=== PATIENT | female | born 1990 | race Caucasian/White ===

== ENCOUNTER 2021-03-05 00:47 | Emergency (ER) | payer BC, SELFPAY ==
[2021-03-05 01:05] VITALS: BP 146/101; PULSE 63; RESP 16; TEMP 36.9; O2SAT 97; BMI 40.3
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
[2021-03-05] MEDS: HYDROcodone-acetaminophen 5-325 mg Tablet 2 TAB PO (02:54)
[2021-03-05 02:57] VITALS: BP 128/88; PULSE 70; RESP 16; O2SAT 99
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
--- NOTE | 2021-03-09 08:10 | DCPLANNER ---
Patient has a follow up appointment scheduled for Wednesday, March 10, 2021 at 11:[address] Carroll at [facility]. Clinic will call patient with appointment information.
--- NOTE | 2021-03-26 08:45 | DCPLANNER ---
Patient did attend appointment scheduled with [facility].
== END 2021-03-05 02:58 | disposition home or self-care (01) ==
PROVIDERS: Emergency Provider Physician Assistant
DX: S06.9X9A Unspecified intracranial injury with loss of consciousness of unspecified duration, initial encounter (principal); S02.401A Maxillary fracture, unspecified side, initial encounter for closed fracture; S02.2XXA Fracture of nasal bones, initial encounter for closed fracture; Y04.2XXA Assault by strike against or bumped into by another person, initial encounter
CPT/HCPCS: 70450; 70486; 72125; 99283

== ENCOUNTER → 2021-10-07 15:42 | Outpatient (BNVA) | payer BC, SELFPAY | PROVIDERS: Visit Provider Nurse Practitioner Family | DX: R06.02 Shortness of breath (principal); R07.9 Chest pain, unspecified; M94.0 Chondrocostal junction syndrome [Tietze]; R53.83 Other fatigue; J45.909 Unspecified asthma, uncomplicated; G47.00 Insomnia, unspecified; F32.9 Major depressive disorder, single episode, unspecified; F41.9 Anxiety disorder, unspecified; Z68.39 Body mass index [BMI] 39.0-39.9, adult; F17.210 Nicotine dependence, cigarettes, uncomplicated | CPT/HCPCS: 71046; 80053; 80061; 82306; 82607; 84443; 85651; 86141 ==

== ENCOUNTER 2021-11-12 17:39 | Emergency (ER) | payer BC, SELFPAY ==
[2021-11-12] VITALS (7 sets, daily range): BP systolic 141–167; BP diastolic 72–102; PULSE 86–103; RESP 18–24; O2SAT 94–100; BMI 40.3
--- NOTE | 2021-11-12 17:44 | XRR_ITS ---
PROCEDURE INFORMATION: Exam: XR Chest Exam date and time: 11/12/2021 6:06 PM Age: 31 years old Clinical indication: Dyspnea and wheezing TECHNIQUE: Imaging protocol: XR of the chest. Views: 2 views. COMPARISON: CR XR chest 2V* [id number] 10/07/2021 3:48 PM FINDINGS: Lungs: There is no evidence of focal pulmonary consolidation. Pleural spaces: No pleural effusion or pneumothorax. Heart/Mediastinum: Normal in size. Bones/joints: No acute fracture is identified. XR/XR chest 2V* [id number] IMPRESSION: No acute findings.
--- NOTE | 2021-11-12 17:45 | ECG_ITS ---
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 Measurements Intervals [place] Rate: 81 P: 52 MO: 153 QRS: 55 QRSD: 101 T: 51 QT: 403 QTc: 469 Interpretive Statements SINUS RHYTHM INCOMPLETE RIGHT BUNDLE BRANCH BLOCK [90+ ms QRS DURATION, TERMINAL R IN V1/V2, 40+ ms S IN I/aVL/V4/V5/V6] No previous ECG available for comparison Electronically Signed On 11-12-2021 21:53:42 CDT by Jay Calzada M.D. [email or web address]
--- NOTE | 2021-11-12 17:59 | W.ED.GENADLT ---
HPI - General Adult General: Chief complaint: Shortness of Breath/Dyspnea Stated complaint: SOB Time Seen by Provider: 11/12/21 17:44 History of Present Illness: Patient is a 31-year-old Fe with history of asthma presenting to the emergency room 1 week of cough and 1 day of dyspnea. Patient tells me that that issue has been wheezing earlier today and went to see her primary care provider at which point she was receiving breathing treatment steroid without any significant improvement in symptoms. Patient was then told to come to the emergency room. Arrival, patient has bilateral wheezing. Patient denies any productive cough, nausea/vomiting, diarrhea, melena medic easier. Denies any chest pain, pleuritic chest pain, leg swelling, recent travel recent immobilization, or OCP use. No prior history of VTE's. Patient denies any history of aortic aneurysm in the family. No family history of cardiac issues. Report dyspnea is not exertional. Onset: 1 day of dyspnea, 1 week of cough Duration: ongoing Location:home Severity:moderate Associated symptoms: Reports dyspnea; Deny chest pain, nausea, rash, palpitations or vomiting Review of Systems Const: Denies: fever(s) or chills Eyes: Denies: change in vision ENMT: Denies: mouth pain Card: Denies: chest pain or palpitations Resp: Reports: dyspnea and wheezing; Denies: non-productive cough GI: Denies: abdominal pain, nausea, vomiting or diarrhea : Denies: dysuria Musc: Denies: extremity pain Skin/Breast: Denies: rash or new lesions Neuro: Denies: weakness in extremities Psych: Reports: other (Normal mood) Myo/Lymph: Denies: easy bruising [facility] ED PFSH: Medical History (Updated 11/12/21 @ 18:00 by Lenin Unger MD) Asthma Social History (Updated 11/12/21 @ 18:00 by Lenin Unger MD) Smoking and tobacco status: never smoked Second hand smoke exposure: Yes Alcohol intake: never Substance/Drug Use: never Female Reproductive History: Date of last menstrual period: 03/01/21 Physical Exam Const: COMMON NORMALS: alert HENMT: COMMON NORMALS: atraumatic HEAD & SCALP: atraumatic MOUTH: moist mucous membranes not abnormal Eye: COMMON NORMALS: EOMs intact bilaterally and conjunctivae normal CONJUNCTIVA: Yes conjunctivae normal Neck/C-Spine: COMMON NORMALS: full ROM and supple Resp: COMMON NORMALS: normal respiratory effort OTHER: + Wheezing bilaterally, mild intercostal retraction Cardio: COMMON NORMALS: regular rate RATE: regular rate OTHER: 2+ radial pulses b/l GI: COMMON NORMALS: Soft to palpation and non-tender PALPATION: Yes Soft to palpation Extremity: COMMON NORMALS: full ROM Neuro: SENSORIUM/ORIENTATION: Yes alert MOTOR EXAM: No Abnormal motor strength present and Other motor observations present (no focal motor deficits) Psych: COMMON NORMALS: speech normal SPEECH: Yes normal speech MOOD & AFFECT: Yes euthymic mood Course Vital Signs: Vital signs: Vital Signs Pulse Rate 91 11/12/21 18:19 Respiratory Rate 22 H 11/12/21 18:19 Blood Pressure 163/91 11/12/21 17:40 Pulse Oximetry 100 11/12/21 18:19 MDM - General Adult Medical Decision Making 31-year-old female with history of asthma/COPD presents the emergency room with wheezing bilaterally. On arrival, patient is afebrile with normal O2 sats. Patient is noted to have bilateral expiratory wheezing. Patient received DuoNeb and terbutaline in the emergency room with significant improvement in symptoms. She continues to be satting well on room air. At 6:30 PM, patient ports feeling agitated and thinks that there is something in his throat. I discuss case with Dr. Carroll at 6:44pm. Dr. Carroll evaluate patient at bedside and does not recommend scoping the patient as he does not think this is upper airway obstruction patient does not have any drooling, slurring of speech, hoarseness of voice, tongue swelling or uvula swelling. Patient continues to be satting well, now tolerating p.o. without any difficulty. Patient has no stridor or any signs of upper airway obstruction. Patient elects to go home at this time. Doubt ACS/PE or other emergent causes of dyspnea. No suspicion for aortic dissection given no widened mediastinum, 2+ upper extremity pulses, or tearing pain. No suspicion for PE given no pleuritic chest pain, recent immobilization or surgery hemoptysis, or other VTE risk factors. EKG is non-ischemic. XR normal. Rx: albuterol PRN wheezing Disposition: Discharge. Patient counseled regarding diagnostic impression, treatment plan. Patient given ED strict return precautions to return for continuation, worsening, or development of new symptoms. Instructed to f/u w/ PCP regarding symptoms today. Patient verbalized understanding. Lab Data : 11/12/21 18:46 11/12/21 18:46 Radiology Impressions Chest X-Ray 11/12/21 17:44 IMPRESSION: No acute findings. Laboratory Results WBC 10.0 10^3/uL (4.0-10.0) 11/12/21 18:46 RBC 4.98 10^6/uL (4.1-5.3) 11/12/21 18:46 Hgb 14.9 g/dL (11.5-15.3) 11/12/21 18:46 Hct 44.4 % (37.0-47.0) 11/12/21 18:46 MCV 89.2 fl (81-99) 11/12/21 18:46 MCH 29.9 pg (28.0-34.0) 11/12/21 18:46 MCHC 33.6 g/dL (30.0-36.0) 11/12/21 18:46 RDW 12.2 % (12.1-15.1) 11/12/21 18:46 Plt Count 303 10^3/cmm (130-400) 11/12/21 18:46 MPV 9.5 fL (7.4-10.4) 11/12/21 18:46 Neut % (Auto) 82.9 % 11/12/21 18:46 Lymph % (Auto) 11.3 % 11/12/21 18:46 Reeves % (Auto) 2.3 % 11/12/21 18:46 Eos % (Auto) 2.7 % 11/12/21 18:46 Baso % (Auto) 0.5 % 11/12/21 18:46 Neut # (Auto) 8.33 10^3/uL (1.8-7.7) H 11/12/21 18:46 Lymph # (Auto) 1.1 10^3/uL (0.8-4.8) 11/12/21 18:46 Reeves # (Auto) 0.2 10^3/uL (0.2-0.9) 11/12/21 18:46 Eos # (Auto) 0.3 10^3/uL (0.0-0.8) 11/12/21 18:46 Baso # (Auto) 0.1 10^3/uL (0.0-0.1) 11/12/21 18:46 Nucleated RBC % (auto) 0 % 11/12/21 18:46 Nucleated RBCs # 0.0 /100WBC 11/12/21 18:46 Imaging Data Other Imaging: Radiologist's impression: [address] [address] XRay Report Signed Patient: Mitzi Ang Unit #: [id number] : 1990 Age/Sex: 31 / F ADM Date: 11/12/21 Loc: ER Room/Bed: Attending Dr: Ordering Provider/Ordering MD: Lenin Unger MD Date of Service: 11/12/21 Procedure(s): XR chest 2V* [id number] Accession Number(s): [id number] Report Number: [id number] PROCEDURE INFORMATION: Exam: XR Chest Exam date and time: 11/12/2021 6:06 PM Age: 31 years old Clinical indication: Dyspnea and wheezing TECHNIQUE: Imaging protocol: XR of the chest. Views: 2 views. COMPARISON: CR XR chest 2V* [id number] 10/07/2021 3:48 PM FINDINGS: Lungs: There is no evidence of focal pulmonary consolidation. Pleural spaces: No pleural effusion or pneumothorax. Heart/Mediastinum: Normal in size. Bones/joints: No acute fracture is identified. XR/XR chest 2V* [id number] IMPRESSION: No acute findings. ? Dictated By: Yousuf Maguire MD Signed By: Yousuf Maguire MD Signed Date/Time: 11/12/21 190 DD/ 05 Discharge Plan Discharge Patient Disposition: Home Clinical Impression: Wheezing, Acute asthma exacerbation, Dyspnea Condition: Stable Prescriptions: New albuterol sulfate 90 mcg/actuation HFA aerosol inhaler 2 inh inhalation Q4H PRN (Reason: shortness of breath or wheezing) 5 Days Qty: 6.7 0RF No Action trazodone 50 mg tablet 100 mg PO .QHS 30 Days Qty: 60 2RF diclofenac sodium 75 mg tablet,delayed release (DR/EC) 75 mg PO BID 30 Days Qty: 60 2RF albuterol sulfate [ProAir HFA] 90 mcg/actuation HFA aerosol inhaler 2 puff inhalation QID PRN (Reason: shortness of breath or wheezing) Qty: 8.5 6RF Trelegy Ellipta 100-62.5-25 mcg blister with device 1 inh inhalation DAILY Qty: 60 5RF diphenhydramine-acetaminophen [Tylenol PM Extra Strength] 25-500 mg tablet 2 tab PO .Qhs PRN (Reason: pain) Qty: 60 6RF Ubrelvy 100 mg tablet 100 mg PO DAILY 30 Days Qty: 30 11RF diclofenac sodium [Voltaren Arthritis Pain] 1 % gel 4 g topical QID Qty: 100 11RF methylprednisolone acetate 40 mg/mL suspension 40 mg IM ONCE Qty: 1 0RF dexamethasone sodium phosphate 4 mg/mL solution 4 mg IM ONCE Qty: 1 0RF albuterol sulfate 2.5 mg /3 mL (0.083 %) solution for nebulization 2.5 mg inhalation QID PRN (Reason: shortness of breath or wheezing) Qty: 180 8RF (DME) nebulizers Misc See Rx Instructions .Route Qty: 1 0RF Rx Instructions: As directed promethazine-DM 6.25-15 mg/5 mL syrup 5 - 10 ml PO Q6H Qty: 200 1RF cholecalciferol (vitamin D3) 50 mcg (2,000 unit) capsule 50 mcg PO DAILY 90 Days Qty: 90 1RF Discharge Orders: Discharge ED (Routine); Ordered 11/12/21 Ordered By: Lenin Unger Referrals: Clarice Haas NP [Primary Care Provider] - Discharge Diet: Advance as tolerated Discharge Activity: Increase activity as tolerated Patient Instructions: Wheezing (ED) Activity Restrictions/Additional Instructions: Come back to the emergency room if your symptoms worsen, have any shortness of breath, fever/chills, dehydration, inability tolerate food or drinks, any difficulty breathing, or any new or concerning complaints. Stand Alone Forms: Work/School Release Coding Level of Care Code ED Steam Station Supervisor for Maddyg Fwd Exam Comprehensive
[2021-11-12] MEDS: ipratropium-albuterol 3 mL Neb INHALATION ×3 (18:14→18:22)
[2021-11-12 19:08] LABS: Basophils # 0.1 10^3/uL (0.0-0.1); Basophils % 0.5 %; Eosinophils # 0.3 10^3/uL (0.0-0.8); Eosinophils % 2.7 %; Hematocrit 44.4 % (37.0-47.0); Hemoglobin 14.9 g/dL (11.5-15.3); Lymphocytes # 1.1 10^3/uL (0.8-4.8); Lymphocytes % 11.3 %; Mean Corpuscular HGB Conc 33.6 g/dL (30.0-36.0); Mean Corpuscular Hemoglobin 29.9 pg (28.0-34.0); Mean Corpuscular Volume 89.2 fl (81-99); Mean Platelet Volume 9.5 fL (7.4-10.4); Monocytes # 0.2 10^3/uL (0.2-0.9); Monocytes % 2.3 %; Neutrophils # 8.33 10^3/uL (1.8-7.7); Neutrophils % 82.9 %; Nucleated Red Blood Cells % 0 %; Platelet Count 303 10^3/cmm (130-400); Red Blood Count 4.98 10^6/uL (4.1-5.3); Red Cell Distribution Width 12.2 % (12.1-15.1)
[2021-11-12] MEDS: LORazepam 2 mg/mL INJ 1 mL IVP (19:17)
[2021-11-12] MEDS: terbutaline 1 mg/mL INJ 0.25 MG SUBCUT (19:20)
[2021-11-12 20:37] LABS: Anion Gap 17.5 (5-19); Blood Urea Nitrogen 10 mg/dL (6-20); Calcium 9.1 mg/dL (8.5-10.5); Carbon Dioxide 20 mmol/L (22-29); Chloride 106 mmol/L (98-107); Glucose 134 mg/dL (65-115); Osmolality Calculated 291 mOsm/kg (285-295); Potassium 3.5 mmol/L (3.5-5.1); Sodium 140 mmol/L (136-145)
== END 2021-11-12 20:42 | disposition home or self-care (01) ==
PROVIDERS: Emergency Provider Emergency Medicine; PCP Nurse Practitioner Family
DX: J45.901 Unspecified asthma with (acute) exacerbation (principal); Z77.22 Contact with and (suspected) exposure to environmental tobacco smoke (acute) (chronic)
CPT/HCPCS: 71046; 80048; 85025; 93005; 94640; 96372; 96374; 99284; J2060; J3105

== ENCOUNTER → 2021-12-28 10:26 | Outpatient (BNVA) | payer BC, SELFPAY | PROVIDERS: PCP Nurse Practitioner Family; Visit Provider Internal Medicine Pulmonary Disease | DX: J45.909 Unspecified asthma, uncomplicated (principal); R06.02 Shortness of breath; F17.210 Nicotine dependence, cigarettes, uncomplicated | CPT/HCPCS: 36415; 82103; 82785; 86003 ==

== ENCOUNTER 2022-01-27 13:23 | Outpatient (CLI) | payer BC, SELFPAY ==
--- NOTE | 2022-01-27 13:46 | PFTS_ITS ---
Date of Study:01/27/22 Date of Dictation: 01/29/2022 MECHANICS: Postbronchodilator forced vital capacity (FVC) is normal. Postbronchodilator forced expiratory volume in one second (FEV1) is moderately reduced 61%. FEV1/FVC is reduced. There is no significant response to bronchodilators. FLOW VOLUME LOOP: Sloping of expiratory limb suggestive of airflow obstruction . LUNG VOLUMES: Total lung capacity (TLC) is normal. Residual volume (RV) is normal. DIFFUSING CAPACITY FOR CARBON MONOXIDE: Normal . INTERPRETATION: The spirometry consistent with moderate airflow obstruction. No significant response to bronchodilators. Flow volume loop consistent with airflow obstruction. Lung volumes are normal. Gas transfer is normal. Clinical correlation recommended. [facility]
== END 2022-01-27 13:24 | disposition home or self-care (01) ==
PROVIDERS: PCP Nurse Practitioner Family; Visit Provider Internal Medicine Pulmonary Disease
DX: J45.909 Unspecified asthma, uncomplicated (principal); R06.02 Shortness of breath
CPT/HCPCS: 94060; 94618; 94726; 94729; J7611

== ENCOUNTER 2022-04-20 06:00 | Outpatient (CLI) | payer BC, MEDICAID, SELFPAY | END 2022-04-20 06:01 | disposition home or self-care (01) | LOC: RAD 06-24 09:00 | PROVIDERS: PCP Nurse Practitioner Family; Visit Provider Nurse Practitioner Family | DX: R10.9 Unspecified abdominal pain (principal); R19.7 Diarrhea, unspecified; R14.0 Abdominal distension (gaseous); K59.00 Constipation, unspecified; R11.0 Nausea; K58.9 Irritable bowel syndrome, unspecified | CPT/HCPCS: 74018; 80053 ==

== ENCOUNTER 2022-07-01 08:25 | Day surgery (SDC) | payer BC, MEDICAID, SELFPAY ==
[2022-06-30 10:18] VITALS: BMI 40.3
[2022-07-01 08:42] VITALS: BP 139/91; PULSE 73; RESP 18; TEMP 36.2; O2SAT 100
[2022-07-01] MEDS: sodium chloride 0.9% 1,000 ML 30 ML IV (08:49)
[2022-07-01 08:50] LABS: OR HCG Qualitative Urine Negative (Negative)
--- NOTE | 2022-07-01 08:50 | P.HP_ITS ---
Same Day Surgery H&P Indication for Procedure/HPI DATE OF PROCEDURE: July 01, 2022 CHIEF COMPLAINT/INDICATIONFOR SURGICAL PROCEDURE: Belly pain PREOP DIAGNOSIS: Change in bowel habits PLANNED PROCEDURE: Operation Date: 07/01/22 09:15 Proposed Procedures p Colonoscopy 43381,R19.4(Not Applicable) - Donato Mensah MD 05/05/2022 This is a pleasant 32 years old female patient, referred to my practice with history of change in bowel habits diarrhea alternating with constipation associated with lower abdominal sharp and throbbing pain describes it as labor pain gets worse with stress and food and gets better with no obvious explanation.? Patient denies any bleeding per rectum and she does report that she has a sister of 22 years of age had history of colon cancer patient herself had a 2018 colonoscopy that showed polyps.? Patient denies history of vaginal discharge but she does report element of dyspareunia particularly with lower abdominal pain.? She did not have recent pelvic exam and she is due for a colonoscopy for surveillance purposes. Interim history 07/01/2022 Patient comes today for surveillance colonoscopy ROS All systems have been reviewed negative except as for the above or per problem list. Medications/Allergies* Home Medications Medication Instructions Recorded Confirmed Type diclofenac sodium 1 % topical gel 1 ea topical PRN PRN Pain 06/30/22 06/30/22 History diclofenac sodium 75 mg 75 mg PO BID 06/30/22 06/30/22 History tablet,delayed release trazodone 50 mg tablet 50 mg PO .QHS PRN Sleep 06/30/22 06/30/22 History Allergies/Adverse Reactions Allergy/AdvReac Type Severity Reaction Status Date / Time morphine Allergy ALGY-Rash Verified 07/01/22 08:51 Current Medications: Generic Name Dose Route Start Last Admin Trade Name Freq PRN Reason Stop Dose Admin Sodium Chloride 1,000 mls @ 30 mls/hr 07/01/22 08:30 07/01/22 08:49 Sodium Chloride 0.9% IV 07/02/22 08:29 30 mls/hr .Q24H SONYA Administration Pertinent History/Comorbid Conditions* Medical History (Updated 04/20/22 @ 11:05 by Clarice Haas NP) Asthma Social History Smoking and tobacco status: current every day smoker cigarettes Packs smoked p er day: 2 Years cigarettes smoked: 19 [ Other cigarette details: currently 1ppd ] Second hand smoke exposure: Yes Alcohol intake: never Pertinent Exam Findings alert, oriented x 3, regular rate & rhythm and procedure specific exam findings (Abdominal exam nontender nondistended soft) Recommendations Surgery/Procedure today (Colonoscopy with possible bx) Coding Level of Care Code Acute Structural Iron Erector for Linda Prieto
--- NOTE | 2022-07-01 09:00 | ANES.PREANE2 ---
Pre-Anesthetic Assessment Height/Weight: Height 1.63 m Weight 106.594 kg Temp Pulse Resp BP Pulse Ox O2 Del Method 97.1 F L 73 18 139/91 100 07/01/22 08:42 07/01/22 08:42 07/01/22 08:42 07/01/22 08:42 07/01/22 08:42 07/01/22 08:42 Preop Diagnosis: Change in bowel habits Operation Date: 07/01/22 09:15 Proposed Procedures p Colonoscopy 20983,R19.4(Not Applicable) - Donato Mensah MD Familial anesthetic complications: none Was Beta Grzegorz taken within 24 hours: N/A Was Clonidine taken within 24 hours: N/A Last intake: Intake Last Liquid Date 07/01/22 Last Liquid Time 00:15 Last Solid Date 06/29/22 Last Solid Time 22:30 Social Alcohol (occasional) and Tobacco 0.5 pack(s) per day Exam alert, oriented x 3, clear to auscultation bilaterally and regular rate & rhythm Airway Submandibular: within normal limits Cervical ROM: within normal limits Mallampati: Class II Dentition: chipped and full Pulmonary Asthma and Exertional Dyspnea CV/HEM palpitations None reported Hepatic None reported GI None reported Metabolic None reported Musc/skel Lower Back Pain Neuropsych Anxiety, Bipolar, Depression and Headache Anesthetic Plan ASA status: 3 Risk of > 500 ml blood loss (7ml/kg in children): No Medications/Allergies Home Medications Medication Instructions Recorded Confirmed Last Taken Type cholecalciferol (vitamin D3) 50 50 mcg PO DAILY 90 days #90 caps 04/20/22 06/30/22 Unknown Rx mcg (2,000 unit) capsule diphenhydramine 25 2 tab PO .Qhs PRN pain #60 tabs 04/20/22 06/30/22 Unknown Rx mg-acetaminophen 500 mg tablet (Tylenol PM Extra Strength) montelukast 10 mg tablet 10 mg PO DAILY 30 days #30 tabs 04/20/22 06/30/22 Unknown Rx (Singulair) ondansetron HCl 4 mg tablet 4 mg PO Q6H PRN nausea and 04/20/22 06/30/22 Unknown Rx vomiting #90 tabs diclofenac sodium 1 % topical gel 1 ea topical PRN PRN Pain 06/30/22 06/30/22 Unknown History diclofenac sodium 75 mg 75 mg PO BID 06/30/22 06/30/22 Unknown History tablet,delayed release trazodone 50 mg tablet 50 mg PO .QHS PRN Sleep 06/30/22 06/30/22 Unknown History Allergies Allergy/AdvReac Type Severity Reaction Status Date / Time morphine Allergy ALGY-Rash Verified 07/01/22 08:51 Current Medications Generic Name Dose Route Start Last Admin Trade Name Freq PRN Reason Stop Dose Admin Sodium Chloride 1,000 mls @ 30 mls/hr 07/01/22 08:30 07/01/22 08:49 Sodium Chloride 0.9% IV 07/02/22 08:29 30 mls/hr .Q24H SONYA Administration PFSH Anesthesia Medical History Asthma Social History Smoking and tobacco status: current every day smoker cigarettes Packs smoked per day: 2 Years cigarettes smoked: 19 [ Other cigarette details: currently 1ppd ] Second hand smoke exposure: Yes Alcohol intake: never Female Reproductive History Date of last menstrual period: 03/01/21 Data Anesthesia Cardiac Studies: No Data to Display
[2022-07-01 09:47] VITALS: BP 136/92; PULSE 73; RESP 16; TEMP 36.3; O2SAT 99
--- NOTE | 2022-07-01 09:51 | ANE.PACU2 ---
Inpatient post-anesthesia follow up: Airway intact: Yes Vital signs: Temperature 97.1 F Pulse Rate 73 Respiratory Rate 18 Blood Pressure 139/91 Pulse Oximetry 100 Oxygen Delivery Me thod Room Air Oxygen Flow Rate Fraction of Inspir ed Oxygen Hydration adequate: Yes Nausea and vomiting: No Pain level: 1 Mental status: Baseline
[2022-07-01 09:57] VITALS: BP 127/94; PULSE 70; RESP 18; O2SAT 100
== END 2022-07-01 10:30 | disposition home or self-care (01) ==
PROVIDERS: Anesthesiology; PCP Nurse Practitioner Family; Visit Provider Surgery
PROC: 0DJD8ZZ Inspection of Lower Intestinal Tract, Via Natural or Artificial Opening Endoscopic (ICD-10-PCS; CPT 45378; principal; 2022-07-01 09:15)
DX: Z12.11 Encounter for screening for malignant neoplasm of colon (principal); J45.909 Unspecified asthma, uncomplicated; F17.210 Nicotine dependence, cigarettes, uncomplicated; Z80.0 Family history of malignant neoplasm of digestive organs; Z86.010 Personal history of colon polyps
CPT/HCPCS: 45378; 81025; 82274; 83630; 84703; 87493; 87506; J2704; J7030

== ENCOUNTER 2022-08-11 11:05 | Emergency (ER) | payer BC, MEDICAID, SELFPAY ==
[2022-08-11 11:11] VITALS: BP 83/60; PULSE 71; RESP 18; TEMP 36.8; O2SAT 96; BMI 28.3
--- NOTE | 2022-08-11 11:25 | XRR_ITS ---
PROCEDURE INFORMATION: Exam: XR Chest Exam date and time: 08/11/2022 11:50 AM Age: 32 years old Clinical indication: Cough and dyspnea; Additional info: Dyspnea/cough TECHNIQUE: Imaging protocol: Radiologic exam of the chest. Views: 1 view. Total images: 627 COMPARISON: CR XR chest 2V* [id number] 11/12/2021 6:06 PM FINDINGS: Lungs: Unremarkable. No consolidation. Pleural spaces: Unremarkable. No pleural effusion. No pneumothorax. Heart/Mediastinum: Unremarkable. No cardiomegaly. Bones/joints: Unremarkable. XR/XR chest 1V portable [id number] IMPRESSION: No acute findings.
--- NOTE | 2022-08-11 11:35 | ECG_ITS ---
[facility] Test Date: 2022-08-11 Pat Name: Mitzi Ang Department: Room: Gender: Female Press Setup Operator: : 1990 Requested By: Ryland Aldana Order Number: [id number] Rafaela MD: Jay Calzada M.D. Measurements Intervals [place] Rate: 59 P: 41 DE: 155 QRS: 50 QRSD: 101 T: 39 QT: 452 QTc: 449 Interpretive Statements SINUS BRADYCARDIA INCOMPLETE RIGHT BUNDLE BRANCH BLOCK [90+ ms QRS DURATION, TERMINAL R IN V1/V2, 40+ ms S IN I/aVL/V4/V5/V6] Compared to ECG 11/12/2021 17:18:22 Sinus rhythm no longer present Electronically Signed On 08-11-2022 18:12:03 COAL CUTTING MACHINE OPERATOR by Jay Calzada M.D. [id number]
--- NOTE | 2022-08-11 12:12 | ED_ITS ---
HPI - Chest Pain General: Chief Complaint: Chest Pain Stated Complaint: CHEST PAIN Time Seen by Provider: 08/11/22 11:10 Source: patient Mode of arrival: ambulatory History of Present Illness: 32-year-old female presents emergency room complaining of right-sided chest pain epigastric right upper quadrant pain radiating to her back. It began this morning while she was driving. She has had this several times before its been a year or so since her last episode. Radiates up into her right shoulder she does not have any associated vomiting or diarrhea but has been nauseous. She has some irritable bowel issues in the past which she seen general surgery. She denies any medic easy melena hematemesis Calixto emesis no dysuria urgency or frequency. She has not noticed anything in the past that makes this better or worse. She has previously had a cholecystectomy. MD complaint: chest pain Onset (ago): minute(s) Timing of current episode: episodic Prior episodes: Yes Onset: during rest Pain location: right chest Pain radiation: back, abdomen (Epigastric right upper quadrant) and right shoulder Severity: moderate Quality: sharp Relieving factors: nothing Exacerbating factors: nothing Associated symptoms: Reports abdominal pain; Deny diaphoresis, dyspnea, fever(s), leg edema, nausea, palpitations, sense of impending doom, syncope or vomiting Treatment prior to arrival: none Review of Systems Const: Denies: fever(s), chills, fatigue, malaise or diaphoresis ENMT: Denies: throat pain, ear or mastoid pain, nasal discharge or nasal congestion Card: Reports: chest pain; Denies: palpitations, irregular heart rhythm, edema, swelling of feet/ankles or syncope Resp: Denies: dyspnea GI: Reports: abdominal pain; Denies: nausea, vomiting or diarrhea : Denies: flank pain, difficulty voiding, dysuria, urinary frequency or urinary urgency Skin/Breast: Denies: rash or pruritus PFSH ED PFSH: Medical History Asthma Surgical History History of delivery History of colonoscopy with polypectomy History of laparoscopic cholecystectomy Social History Smoking and tobacco status: current every day smoker cigarettes Packs smoked per day: 2 Years cigarettes smoked: 19 [ Other cigarette details: currently 1ppd ] Second hand smoke exposure: Yes Alcohol intake: never Female Reproductive History: Date of last menstrual period: 03/01/21 Physical Exam Const: GENERAL APPEARANCE: cooperative and comfortable ORIENTATION/CONSCIOUSNESS: Yes awake, Yes oriented to person, Yes oriented to place and Yes oriented to time HENMT: COMMON NORMALS: normocephalic, atraumatic and hearing grossly normal bilaterally HEAD & SCALP: normocephalic and atraumatic Resp: COMMON NORMALS: normal respiratory effort, No retractions, No use of accessory muscles and clear to auscultation bilaterally AUSCULTATION: clear to auscultation bilaterally Cardio: COMMON NORMALS: regular rate, regular rhythm and No murmurs present (Cardio) RATE: regular rate RHYTHM: regular rhythm GI: COMMON NORMALS: Soft to palpation and No hepatosplenomegaly present AUSCULTATION: Yes normoactive bowel sounds PALPATION: Yes Soft to palpation, No Tenderness to palpation present (GI), No Guarding due to palpation present (GI) and Yes No hepatosplenomegaly present Extremity: COMMON NORMALS: normal to inspection, capillary refill normal, no clubbing, cyanosis or edema, no calf tenderness and no pedal edema Neuro: SENSORIUM/ORIENTATION: Yes oriented to person, Yes oriented to place and Yes oriented to time Skin: COMMON NORMALS: no rashes or lesions noted GENERAL SKIN EXAM: no rashes or lesions noted Course Vital Signs: Vital signs: Vital Signs Temperature 98.2 F 08/11/22 11:11 Pulse Rate 71 08/11/22 11:11 Respiratory Rate 18 08/11/22 11:11 Blood Pressure 143/79 08/11/22 12:20 Pulse Oximetry 96 08/11/22 11:11 Oxygen Delivery Me thod 08/11/22 11:11 MDM - Chest Pain Medical Decision Making Biliary colic like symptoms and the patient is previous had a cholecystectomy. Suspicious for sphincter of Oddi disease. Discharge patient home started on Protonix refer back to primary care for further evaluation. Avoid red meats fatty foods citrus foods deep fried foods. Medical Records I reviewed the patient's medical records. Lab Data I reviewed the patient's lab results. 08/11/22 12:05 08/11/22 12:05 Radiology Impressions Chest X-Ray 08/11/22 11:25 IMPRESSION: No acute findings. Laboratory Results WBC 7.4 10^3/uL (4.0-10.0) 08/11/22 12:05 RBC 4.59 10^6/uL (4.1-5.3) 08/11/22 12:05 Hgb 13.6 g/dL (11.5-15.3) 08/11/22 12:05 Hct 41.4 % (37.0-47.0) 08/11/22 12:05 MCV 90.2 fl (81-99) 08/11/22 12:05 MCH 29.6 pg (28.0-34.0) 08/11/22 12:05 MCHC 32.9 g/dL (30.0-36.0) 08/11/22 12:05 RDW 12.0 % (12.1-15.1) L 08/11/22 12:05 Plt Count 255 10^3/cmm (130-400) 08/11/22 12:05 MPV 9.3 fL (7.4-10.4) 08/11/22 12:05 Neut % (Auto) 58.6 % 08/11/22 12:05 Lymph % (Auto) 30.9 % 08/11/22 12:05 Page % (Auto) 4.9 % 08/11/22 12:05 Eos % (Auto) 4.5 % 08/11/22 12:05 Baso % (Auto) 0.8 % 08/11/22 12:05 Neut # (Auto) 4.34 10^3/uL (1.8-7.7) 08/11/22 12:05 Lymph # (Auto) 2.3 10^3/uL (0.8-4.8) 08/11/22 12:05 Page # (Auto) 0.4 10^3/uL (0.2-0.9) 08/11/22 12:05 Eos # (Auto) 0.3 10^3/uL (0.0-0.8) 08/11/22 12:05 Baso # (Auto) 0.1 10^3/uL (0.0-0.1) 08/11/22 12:05 Nucleated RBC % (auto) 0 % 08/11/22 12:05 Nucleated RBCs # 0.0 /100WBC 08/11/22 12:05 Sodium 127 mmol/L (136-145) L 08/11/22 12:05 Potassium 3.8 mmol/L (3.5-5.1) 08/11/22 12:05 Chloride 93 mmol/L (98-107) L 08/11/22 12:05 Carbon Dioxide 26 mmol/L (22-29) 08/11/22 12:05 Anion Gap 11.8 (5-19) 08/11/22 12:05 BUN 7 mg/dL (6-20) 08/11/22 12:05 Creatinine 0.8 mg/dL (0.5-0.9) 08/11/22 12:05 GFR Calculation 82.6 mL/min (90-130) L 08/11/22 12:05 Glucose 81 mg/dL (65-115) 08/11/22 12:05 Calculated Osmolality 261 mOsm/kg (285-295) L 08/11/22 12:05 Calcium 8.7 mg/dL (8.5-10.5) 08/11/22 12:05 Total Bilirubin 0.2 mg/dL (0.15-1.2) 08/11/22 12:05 AST 17 U/L (0-32) 08/11/22 12:05 ALT 23 U/L (0-33) 08/11/22 12:05 Alkaline Phosphatase 82 U/L (35-105) 08/11/22 12:05 Total Protein 6.3 g/dL (6.6-8.7) L 08/11/22 12:05 Albumin 4.1 g/dL (3.5-5.2) 08/11/22 12:05 Globulin 2.2 g/dL (1.3-4.6) 08/11/22 12:05 Lipase 17 U/L (13-60) 08/11/22 12:05 Discharge Plan Discharge Patient Disposition: Home Clinical Impression: Abdominal pain Condition: Stable Prescriptions: New pantoprazole 40 mg tablet,delayed release (DR/EC) 40 mg PO DAILY 28 Days Qty: 30 0RF No Action albuterol sulfate 90 mcg/actuation HFA aerosol inhaler 2 puff INHALATION QID PRN (Reason: Shortness Of Breath) Tylenol PM Extra Strength 25-500 mg tablet 2 tab PO BEDTIME PRN (Reason: pain) cholecalciferol (vitamin D3) 50 mcg (2,000 unit) capsule 50 mcg PO QAM trazodone 50 mg tablet 50 mg PO BEDTIME diclofenac sodium 75 mg tablet,delayed release (DR/EC) 75 mg PO QAM diclofenac sodium 1 % gel 4 g TOPICAL QID PRN (Reason: Pain) Discharge Orders: Discharge ED (Routine); Ordered 08/11/22 Ordered By: Ryland Littlejohn Referrals: Clarice Haas NP [Primary Care Provider] - Patient Instructions: Abdominal Pain (ED), Opioid Safety, Pain Management Activity Restrictions/Additional Instructions: You were seen today for abdominal pain. Your symptoms are suggestive of biliary colic. Since you previous had your gallbladder out you may have a condition valentin led sphincter of Oddi disease. Follow-up with your primary care doctor for possible referral or further evaluation on your abdominal pain. Would recommend that you start the pantoprazole 40 mg once daily avoid any spicy foods red meats or fatty foods until your outpatient work-up is completed. Coding Level of Care Code ED Employment Law Attorney for Chg Fwd Exam Detailed
[2022-08-11 12:20] VITALS: BP 143/79
[2022-08-11 12:30] LABS: Basophils # 0.1 10^3/uL (0.0-0.1); Basophils % 0.8 %; Eosinophils # 0.3 10^3/uL (0.0-0.8); Eosinophils % 4.5 %; Hematocrit 41.4 % (37.0-47.0); Hemoglobin 13.6 g/dL (11.5-15.3); Lymphocytes # 2.3 10^3/uL (0.8-4.8); Lymphocytes % 30.9 %; Mean Corpuscular HGB Conc 32.9 g/dL (30.0-36.0); Mean Corpuscular Hemoglobin 29.6 pg (28.0-34.0); Mean Corpuscular Volume 90.2 fl (81-99); Mean Platelet Volume 9.3 fL (7.4-10.4); Monocytes # 0.4 10^3/uL (0.2-0.9); Monocytes % 4.9 %; Neutrophils # 4.34 10^3/uL (1.8-7.7); Neutrophils % 58.6 %; Nucleated Red Blood Cells % 0 %; Platelet Count 255 10^3/cmm (130-400); Red Blood Count 4.59 10^6/uL (4.1-5.3); White Blood Count 7.4 10^3/uL (4.0-10.0)
[2022-08-11 12:43] LABS: Alanine Aminotransferase 23 U/L (0-33); Albumin Level 4.1 g/dL (3.5-5.2); Alkaline Phosphatase 82 U/L (35-105); Anion Gap 11.8 (5-19); Aspartate Amino Transferase 17 U/L (0-32); Blood Urea Nitrogen 7 mg/dL (6-20); Calcium 8.7 mg/dL (8.5-10.5); Carbon Dioxide 26 mmol/L (22-29); Chloride 93 mmol/L (98-107); Globulin 2.2 g/dL (1.3-4.6); Glomerular Filtration Rate 82.6 mL/min (90-130); Glucose 81 mg/dL (65-115); Lipase 17 U/L (13-60); Osmolality Calculated 261 mOsm/kg (285-295); Potassium 3.8 mmol/L (3.5-5.1); Sodium 127 mmol/L (136-145); Total Bilirubin 0.2 mg/dL (0.15-1.2); Total Protein 6.3 g/dL (6.6-8.7)
[2022-08-11 13:35] VITALS: BP 145/78; RESP 18; O2SAT 99
[2022-08-11 13:36] VITALS: BP 145/78; PULSE 71; RESP 18; O2SAT 99
== END 2022-08-11 13:37 | disposition home or self-care (01) ==
PROVIDERS: Emergency Provider Family Medicine; PCP Nurse Practitioner Family
DX: R10.9 Unspecified abdominal pain (principal); F17.210 Nicotine dependence, cigarettes, uncomplicated
CPT/HCPCS: 36415; 71045; 80053; 83690; 85025; 93005; 99285

== ENCOUNTER 2022-09-21 09:09 | Outpatient (CLI) | payer MEDICAID, SELFPAY ==
--- NOTE | 2022-09-21 08:30 | FL_ITS ---
WS: [id number] Exam: [place] small bowel [place] gastro [id number] Date/Time of Exam: 09/21/2022 9:10 AM Reason For Exam: ALTERED BOWEL HABITS Fluoroscopy time: 0min [id number] minutes # of spot films: 2 Preliminary abdominal survey is unremarkable. Prior cholecystectomy. Barium courses through the small bowel without obstruction. There is mild mucosal prominence of the p roximal jejunum and flocculation of the barium column which suggests hypersecretion. The mucosal eric jenniffer of the duodenum and ileum appears normal. No sign of bowel loop herniation or displacement. Small bowel transit time was about 120 minutes which is within normal range. Compression spot images of th e terminal ileum demonstrate no significant abnormal finding. FL/[place] gastro [id number] IMPRESSION: 1. Mild mucosal prominence of the proximal jejunum with flocculation the barium column suggesting hypersecretion. This is nonspecific but might be seen with e nteritis. The remaining small bowel demonstrates normal mucosal pattern with no rmal transit time.
== END 2022-09-21 09:10 | disposition home or self-care (01) ==
LOC: RAD 09:09
PROVIDERS: PCP Nurse Practitioner Family; Visit Provider Surgery
DX: R19.4 Change in bowel habit (principal)
CPT/HCPCS: 74250

== ENCOUNTER → 2022-10-15 10:02 | Outpatient (BNVA) | payer MEDICAID, SELFPAY | PROVIDERS: PCP Nurse Practitioner Family; Visit Provider Nurse Practitioner Family | DX: E66.9 Obesity, unspecified (principal); Z12.4 Encounter for screening for malignant neoplasm of cervix; Z72.51 High risk heterosexual behavior; Z20.9 Contact with and (suspected) exposure to unspecified communicable disease; F32.9 Major depressive disorder, single episode, unspecified; G47.00 Insomnia, unspecified; F41.9 Anxiety disorder, unspecified | CPT/HCPCS: 80053; 80061; 87389; 87491; 87536; 87591; 87661; 88175 ==